=== PATIENT | male | born 1965 | race Hispanic/Latino ===

== ENCOUNTER 2018-02-28 18:23 | Emergency (ER) | payer SELFPAY ==
--- NOTE | 2018-02-28 19:50 | ER ---
Nurse's Notes [facility] Name: Juan Howadr Age: 53 yrs Sex: Male : 1965 Arrival Date: 02/28/2018 Time: 18:29 Bed 14 Private MD: Diagnosis: Essential (primary) hypertension;Pain in right arm Presentation: 02/28 18:50 Presenting complaint: Patient states: Pt. slipped and fell today around 1710 this rk2 afternoon causing pain to right shoulder/arm/wrist while \T\ work. Pt. was to be seen \T\ [employer]; however, they would no evaluate his due to elevated BP. Pt. denies hitting head or LOC. Pt. has hx of HTN and takes medications. Transition of care: patient was not received from another setting of care. Onset of symptoms was February 28, 2018. Initial Sepsis Screen: Does the patient meet any 2 criteria? No. Patient's initial sepsis screen is negative. Does the patient have a suspected source of infection? No. Patient's initial sepsis screen is negative. Care prior to arrival: None. 18:50 Method Of Arrival: Ambulatory rk2 18:50 Acuity: KYREE 4 rk2 Historical: - Allergies: 18:54 No Known Allergies; rk2 - Immunization history:: Pneumococcal vaccine is not up to date, Flu vaccine is not up to date. - Social history:: Smoking status: Patient/guardian denies using tobacco, never smoked. Screenin:30 Abuse screen: Denies threats or abuse. Nutritional screening: No deficits noted. rk2 Tuberculosis screening: No symptoms or risk factors identified. Fall Risk None identified. Assessment: 19:30 General: Appears in no apparent distress. well developed, well nourished, Behavior is rk2 calm, cooperative. 19:30 Pain: Complains of pain in right arm. Neuro: Level of Consciousness is alert, obeys rk2 commands, Oriented to person, place, time, situation. Respiratory: Airway is patent Respiratory effort is even, unlabored, Respiratory pattern is regular, symmetrical. Musculoskeletal: Reports pain in right arm. 19:58 Reassessment: EKG cancelled by provider... accidently clicked off... Pt. DC by rk2 provider; however, pt. left without signing DC papers. Vital Signs: 18:54 BP 162 / 96; Pulse 76; Resp 17; Temp 98.8; Pulse Ox 99% on R/A; Weight 104.33 kg; Pain rk2 810; ED Course: 18:29 Patient arrived in ED. mr 18:54 Triage completed. rk2 18:54 Arm band placed on left wrist. rk2 19:30 Patient has correct armband on for positive identification. Bed in low position. Call rk2 light in reach. 19:39 Rhoda Santana FNP-C is [facility]. kb 19:40 Ministerio Hawkins MD is Attending Physician. kb 19:44 Carolina Sunshine, RN is Primary Nurse. rk2 19:58 No provider procedures requiring assistance completed. Patient did not have IV access rk2 during this emergency room visit. Administered Medications: No medications were administered Outcome: 19:50 Discharge ordered by . kb 19:58 Discharged to home ambulatory. rk2 19:58 Condition: good 20:01 Discharge instructions given to left without instructions rk2 20:01 Patient left the ED. rk2 Signatures: Rhoda Santana FNP-C [employer] OPERATOR HELPER-Kayla Marquez mr Carolina Sunshine, RN RN rk2 Corrections: (The following items were deleted from the chart) 18:57 18:50 Presenting complaint: Patient states: Pt. slipped and fell today around 1710 this rk2 afternoon causing pain to right shoulder/arm/wrist while \T\ work. Pt. was to be seen \T\ [employer]; however, they would no evaluate his due to elevated BP. Pt. denies hitting head or LOC. rk2
--- NOTE | 2018-02-28 19:50 | EDPHYS ---
Physician Documentation [facility] Name: Juan Howard Age: 53 yrs Sex: Male : 1965 Arrival Date: 02/28/2018 Time: 18:29 Bed 14 Private MD: ED Physician Ministerio Hawkins HPI: 02/28 19:47 This 53 yrs old Male presents to ER via Ambulatory with complaints of High kb Blood Pressure. 19:47 The patient has elevated blood pressure and discovered this work after fall injury. kb Onset: The symptoms/episode began/occurred today. Associated signs and symptoms: Pertinent negatives: chest pain, dizziness, dyspnea, headache, lightheadedness, nausea, visual changes, vomiting, weakness. Severity of symptoms: At its worst the blood pressure was moderate. The patient has experienced similar episodes in the past, chronically. The patient has not recently seen a physician. Pt slipped and fell at work causing pain to right arm. Was evaluated there and his bp was elevated so the physician wanted him evaluated for the htn here then brought back for arm pain.. Historical: - Allergies: 18:54 No Known Allergies; rk2 - Immunization history:: Pneumococcal vaccine is not up to date, Flu vaccine is not up to date. - Social history:: Smoking status: Patient/guardian denies using tobacco, never smoked. ROS: 19:46 Constitutional: Negative for fever, chills, and weight loss, Cardiovascular: Negative kb for chest pain, palpitations, and edema, Respiratory: Negative for shortness of breath, cough, wheezing, and pleuritic chest pain, Abdomen/GI: Negative for abdominal pain, nausea, vomiting, diarrhea, and constipation, Skin: Negative for injury, rash, and discoloration, Neuro: Negative for headache, weakness, numbness, tingling, and seizure. 19:47 MS/extremity: Positive for decreased range of motion, pain, of the right arm. kb Exam: 19:49 Constitutional: This is a well developed, well nourished patient who is awake, alert, kb and in no acute distress. Head/Face: Normocephalic, atraumatic. Chest/axilla: Normal chest wall appearance and motion. Nontender with no deformity. No lesions are appreciated. Cardiovascular: Regular rate and rhythm with a normal S1 and S2. No gallops, murmurs, or rubs. Normal PMI, no JVD. No pulse deficits. Respiratory: Lungs have equal breath sounds bilaterally, clear to auscultation and percussion. No rales, rhonchi or wheezes noted. No increased work of breathing, no retractions or nasal flaring. Abdomen/GI: Soft, non-tender, with normal bowel sounds. No distension or tympany. No guarding or rebound. No evidence of tenderness throughout. Skin: Warm, dry with normal turgor. Normal color with no rashes, no lesions, and no evidence of cellulitis. Neuro: Awake and alert, GCS 15, oriented to person, place, time, and situation. Cranial nerves II-XII grossly intact. Motor strength 5/5 in all extremities. Sensory grossly intact. Cerebellar exam normal. Normal gait. 19:49 Musculoskeletal/extremity: Extremities: grossly normal except: noted in the right arm: decreased ROM, pain, ROM: limited active range of motion due to pain, in the right arm, Circulation is intact in all extremities. Sensation intact. Vital Signs: 18:54 BP 162 / 96; Pulse 76; Resp 17; Temp 98.8; Pulse Ox 99% on R/A; Weight 104.33 kg; Pain rk2 8/10; MDM: 19:40 Patient medically screened. kb 19:45 Data reviewed: vital signs, nurses notes. Data interpreted: Pulse oximetry: on room air kb is 99 %. Interpretation: normal. Counseling: I had a detailed discussion with the patient and/or guardian regarding: the historical points, exam findings, and any diagnostic results supporting the discharge/admit diagnosis, the need for outpatient follow up, a family practitioner, to return to the emergency department if symptoms worsen or persist or if there are any questions or concerns that arise at home. ED course: Went in to see pt and patient safety manager said that since his bp has come down he is about to go to [facility] now for evaluation. They do not want anything done here. Pt in agreement. Pt asymptomatic of BP, has history of htn that is treated with medication. . 02/28 19:41 Order name: EKG - Nurse/Tech; Complete Time: 19:46 kb Administered Medications: No medications were administered Disposition: 03/01 00:01 Co-signature as Attending Physician, Ministerio Hawkins MD I agree with the assessment and kdr plan of care. Disposition: 02/28/18 19:50 Discharged to Home. Impression: Essential (primary) hypertension, Pain in right arm. - Condition is Stable. - Discharge Instructions: Musculoskeletal Pain, Hypertension, [id number]. - Medication Reconciliation Form, Thank You Letter, Antibiotic Education, Prescription Opioid Use form. - Follow up: Emergency Department; When: As needed; Reason: Worsening of condition. Follow up: Private Physician; When: 2 - 3 days; Reason: Recheck today's complaints, Continuance of care, Re-evaluation by your physician. Signatures: Rhoda Santana, ANIMAL KEEPER HEAD-C ANIMAL KEEPER HEAD-Ckb Ministerio Hawkins MD MD kdr Kidder, Rhonda RN RN rk2
== END 2018-02-28 20:01 | disposition home or self-care (01) ==
LOC: ER 18:23
DX: I10 Essential (primary) hypertension (principal); M79.601 Pain in right arm
CPT/HCPCS: 99281